=== PATIENT | female | born 1970 | race African-American/Black ===

== ENCOUNTER 2019-02-24 17:44 | Emergency (ER) | payer OTHER ==
[~2019-02-24] VITALS: Ht 167.6 cm; Wt 120.7 kg
--- NOTE | 2019-02-24 18:14 | NUR ---
PT STATES IMMEDIATE NEED FOR RESTROOM FOR DIARRHEA AND "STOMACH NOT FEELING WELL." PT ON SECOND EPISODE OF RUSHING TO RESTROOM FOR DIARRHEA.
[2019-02-24] MEDS ORDERED: SODIUM CHLORIDE 0.9% 1000ML 1,000 ML IV SCH (18:15)
[2019-02-24] MEDS ORDERED: FAMOTIDINE 20 MG/2 ML VIAL IV STA (18:18)
[2019-02-24] MEDS ORDERED: ONDANSETRON HCL INJ 2MG/ML 2ML 2 MG/ML VIAL IV STA (18:18)
--- NOTE | 2019-02-24 18:55 | NUR ---
GIVEN BLANKETS AND MEDS.
[2019-02-24] MEDS ORDERED: POTASSIUM CHLORIDE 20 MEQ TAB CR PO STA (20:14)
[2019-02-24 20:44] VITALS: BP 118/73
== END 2019-02-24 20:50 | disposition home or self-care (01) ==
LOC: FSED 17:44
DX: R42 Dizziness and giddiness (principal); R19.7 Diarrhea, unspecified; I10 Essential (primary) hypertension
CPT/HCPCS: 80053; 80076; 81003; 82270; 85025; 93005; 99283; J2405